=== PATIENT | female | born 1985 | race Caucasian/White ===

== ENCOUNTER 2016-07-24 15:11 | Emergency (ER) | payer MEDICAID | END 2016-07-24 21:36 | disposition home or self-care (01) | LOC: D.ER 15:11 | DX: S39.012A Strain of muscle, fascia and tendon of lower back, initial encounter (principal); W01.0XXA Fall on same level from slipping, tripping and stumbling without subsequent striking against object, initial encounter; Y93.89 Activity, other specified; Y92.019 Unspecified place in single-family (private) house as the place of occurrence of the external cause; R14.0 Abdominal distension (gaseous); F17.200 Nicotine dependence, unspecified, uncomplicated ==

== ENCOUNTER 2016-09-19 22:17 | Emergency (ER) | payer OTHER | END 2016-09-20 01:17 | disposition home or self-care (01) | LOC: D.ER 22:17 | DX: H10.31 Unspecified acute conjunctivitis, right eye (principal) ==

== ENCOUNTER 2016-11-07 08:44 | Emergency (ER) | payer OTHER ==
[2016-11-07 09:56] LABS: ALBUMIN 3.8 g/dL (3.4-5.0); ALKALINE PHOSPHATASE 71 U/L (46-116); ALT (SGPT) 26 U/L (10-68); AMYLASE - SERUM 18 U/L (25-115); BILIRUBIN - TOTAL 0.33 mg/dL (0.2-1.3); CALC OSMOLALITY 284 mosm/kg (275-300); CALCIUM 8.9 mg/dL (8.5-10.1); CARBON DIOXIDE 22.8 mmol/L (21.0-32.0); CHLORIDE - SERUM 106 mmol/L (98-107); CREATININE - SERUM 0.9 mg/dL (0.6-1.3); GLUCOSE 87 mg/dL (74-106); LIPASE 146 U/L (73-393); POTASSIUM - SERUM 3.6 mmol/L (3.5-5.1); PROTEIN - SERUM 6.8 g/dL (6.4-8.2); SODIUM 142 mmol/L (136-145); UREA NITROGEN 21 mg/dL (7-18); eGFR NON AFRICAN AMERICAN 77 mL/min (90-120)
[2016-11-07 10:01] LABS: HCG SERUM NEGATIVE (NEGATIVE)
[2016-11-07 10:19] LABS: APTT 30.5 SECONDS (22.8-39.4)
[2016-11-07 10:38] LABS: BASOPHILS 0.6 % (0-2); EOSINOPHILS 2.4 % (0-7); HEMATOCRIT 38.9 % (36.0-48.0); IMMATURE GRANULOCYTES 0.1 % (0-5); LYMPHOCYTES 30.4 % (15-50); MCHC 33.4 g/dL (31.0-37.0); MCV 86.8 fL (80.0-100.0); MEAN PLATELET VOLUME 11.2 fL (7.4-10.4); NEUTROPHILS 58.5 % (40-80); PLATELET COUNT 272 10x3/uL (130-400); RBC 4.48 10x6/uL (4.00-5.40); RDW 14.2 % (11.5-14.5)
[2016-11-07 10:52] LABS: INR 0.97 (0.85-1.17); PROTIME 12.8 SECONDS (11.6-15.0)
== END 2016-11-07 10:50 | disposition home or self-care (01) ==
LOC: D.ER 08:44
PROVIDERS: Emergency Medicine
DX: R10.9 Unspecified abdominal pain (principal); N94.6 Dysmenorrhea, unspecified

== ENCOUNTER 2017-04-21 10:44 | Emergency (ER) | payer MEDICAID | END 2017-04-21 12:47 | disposition home or self-care (01) | LOC: D.ER 10:44 | DX: M54.5 Low back pain (principal); W11.XXXA Fall on and from ladder, initial encounter; Y93.89 Activity, other specified; Y92.89 Other specified places as the place of occurrence of the external cause; F17.200 Nicotine dependence, unspecified, uncomplicated ==

== ENCOUNTER 2017-08-17 11:48 | Emergency (ER) | payer MEDICAID | END 2017-08-17 12:59 | disposition home or self-care (01) | LOC: D.ER 11:48 | DX: L25.9 Unspecified contact dermatitis, unspecified cause (principal); L50.9 Urticaria, unspecified; F17.200 Nicotine dependence, unspecified, uncomplicated ==

== ENCOUNTER 2018-01-25 13:45 | Emergency (ER) | payer SELFPAY ==
[~2018-01-25] VITALS: Ht 157.5 cm; Wt 75.0 kg
[2018-01-25 14:30] VITALS: Ht 157.5 cm; Wt 75.0 kg
[2018-01-25] MEDS ORDERED: HYDROCODONE-APA1 TAB PO (17:02)
[2018-01-25 17:34] VITALS: BP 135/87
== END 2018-01-25 17:34 | disposition home or self-care (01) ==
LOC: D.ER 13:45
DX: S39.012A Strain of muscle, fascia and tendon of lower back, initial encounter (principal); W18.30XA Fall on same level, unspecified, initial encounter; Y93.89 Activity, other specified; Y92.019 Unspecified place in single-family (private) house as the place of occurrence of the external cause; Q05.9 Spina bifida, unspecified; F17.200 Nicotine dependence, unspecified, uncomplicated

== ENCOUNTER 2018-03-05 09:44 | Emergency (ER) | payer SELFPAY ==
[~2018-03-05] VITALS: Ht 157.5 cm; Wt 79.5 kg
[~2018-03-05 09:44] MED LIST: HYDROCODONE-APA1 TAB PO
[2018-03-05 09:59] VITALS: Ht 157.5 cm; Wt 79.5 kg
[2018-03-05] MEDS ORDERED: PHENERGAN DM SYR5 ML PO (10:44)
[2018-03-05] MEDS ORDERED: VOLTAREN75 MG PO (10:44)
[2018-03-05] MEDS ORDERED: VIBRAMYCIN 100100 MG PO (10:44)
[2018-03-05 11:10] VITALS: BP 128/68
== END 2018-03-05 11:11 | disposition home or self-care (01) ==
LOC: D.ER 09:44
DX: L03.312 Cellulitis of back [any part except buttock and flank] (principal); J06.9 Acute upper respiratory infection, unspecified; F17.200 Nicotine dependence, unspecified, uncomplicated

== ENCOUNTER 2018-04-11 13:39 | Emergency (ER) | payer SELFPAY ==
[~2018-04-11] VITALS: Ht 157.5 cm; Wt 72.7 kg
[~2018-04-11 13:39] MED LIST changes: +PHENERGAN DM SYR5 ML PO; +VIBRAMYCIN 100100 MG PO; +VOLTAREN75 MG PO
[2018-04-11 13:59] VITALS: Ht 157.5 cm; Wt 72.7 kg
[2018-04-11] MEDS ORDERED: PENICILLIN V P500 MG PO (14:23)
[2018-04-11] MEDS ORDERED: NAPROSYN500 MG PO (14:23)
[2018-04-11 14:55] VITALS: BP 136/89
== END 2018-04-11 14:55 | disposition home or self-care (01) ==
LOC: D.ER 13:39
DX: K02.9 Dental caries, unspecified (principal); F17.200 Nicotine dependence, unspecified, uncomplicated

== ENCOUNTER 2018-04-21 22:45 | Emergency (ER) | payer SELFPAY ==
[~2018-04-21] VITALS: Ht 157.5 cm; Wt 81.8 kg
[~2018-04-21 22:45] MED LIST changes: +NAPROSYN500 MG PO; +PENICILLIN V P500 MG PO
[2018-04-21 22:55] VITALS: Ht 157.5 cm; Wt 81.8 kg
[2018-04-21] MEDS ORDERED: VOLTAREN75 MG PO (23:47)
[2018-04-21] MEDS ORDERED: CLEOCIN HCL300 MG PO (23:47)
[2018-04-22 00:16] VITALS: BP 128/89
== END 2018-04-22 00:16 | disposition home or self-care (01) ==
LOC: D.ER 22:45
DX: H10.32 Unspecified acute conjunctivitis, left eye (principal); F17.200 Nicotine dependence, unspecified, uncomplicated

== ENCOUNTER 2018-05-05 09:25 | Emergency (ER) | payer SELFPAY ==
[~2018-05-05] VITALS: Ht 157.5 cm; Wt 75.0 kg
[~2018-05-05 09:25] MED LIST changes: +CLEOCIN HCL300 MG PO
[2018-05-05 09:35] VITALS: Ht 157.5 cm; Wt 75.0 kg
[2018-05-05 10:33] LABS: BASOPHILS 0.4 % (0-2); EOSINOPHILS 1.2 % (0-7); HEMATOCRIT 36.2 % (36.0-48.0); HEMOGLOBIN 11.5 g/dL (12-16); IMMATURE GRANULOCYTES 0.3 % (0-5); LYMPHOCYTES 22.5 % (15-50); MCHC 31.8 g/dL (31.0-37.0); MCV 75.4 fL (80.0-100.0); MEAN PLATELET VOLUME 10.6 fL (7.4-10.4); MONOCYTES 6.1 % (2-11); NEUTROPHILS 69.5 % (40-80); PLATELET COUNT 299 10x3/uL (130-400); RDW 16.1 % (11.5-14.5); WBC 11.1 10x3/uL (4.8-10.8)
[2018-05-05 10:45] LABS: ALBUMIN 3.5 g/dL (3.4-5.0); ALKALINE PHOSPHATASE 88 U/L (46-116); ALT (SGPT) 20 U/L (10-68); BILIRUBIN - TOTAL 0.43 mg/dL (0.2-1.3); CALC OSMOLALITY 284 mosm/kg (275-300); CALCIUM 8.8 mg/dL (8.5-10.1); CARBON DIOXIDE 23.8 mmol/L (21.0-32.0); CHLORIDE - SERUM 104 mmol/L (98-107); CREATININE - SERUM 0.8 mg/dL (0.6-1.3); GLUCOSE 83 mg/dL (74-106); POTASSIUM - SERUM 3.4 mmol/L (3.5-5.1); PROTEIN - SERUM 7.4 g/dL (6.4-8.2); SODIUM 142 mmol/L (136-145); UREA NITROGEN 20 mg/dL (7-18); eGFR NON AFRICAN AMERICAN 87 mL/min (90-120)
[2018-05-05 11:54] LABS: HCG SERUM NEGATIVE (NEGATIVE)
[2018-05-05] MEDS ORDERED: CYCLOBENZAPRINE10 MG PO (12:09)
[2018-05-05] MEDS ORDERED: IBUPROFEN800 MG PO (12:09)
[2018-05-05] MEDS ORDERED: ACETAMINOPHEN500 M1 PO (12:09)
[2018-05-05 13:22] VITALS: BP 128/088
== END 2018-05-05 13:22 | disposition other institution (70) ==
LOC: D.ER 09:25
PROVIDERS: Family Medicine
DX: S05.01XA Injury of conjunctiva and corneal abrasion without foreign body, right eye, initial encounter (principal); X58.XXXA Exposure to other specified factors, initial encounter; Y93.89 Activity, other specified; Y92.019 Unspecified place in single-family (private) house as the place of occurrence of the external cause; H57.11 Ocular pain, right eye; M25.562 Pain in left knee; Q05.9 Spina bifida, unspecified; F17.200 Nicotine dependence, unspecified, uncomplicated

== ENCOUNTER 2018-12-29 18:49 | Emergency (ER) | payer OTHER ==
[2018-05-05 09:35] VITALS: BMI 30.2
[~2018-12-29 18:49] MED LIST changes: +ACETAMINOPHEN500 M1 PO; +CYCLOBENZAPRINE10 MG PO; +IBUPROFEN800 MG PO
== END 2018-12-29 19:23 | disposition home or self-care (01) ==
LOC: D.ER 18:49
DX: M54.9 Dorsalgia, unspecified (principal); R10.9 Unspecified abdominal pain

== ENCOUNTER 2019-07-16 20:28 | Emergency (ER) | payer OTHER ==
[~2019-07-16] VITALS: Ht 157.5 cm; Wt 68.2 kg
[2019-07-16 20:34] VITALS: Ht 157.5 cm; Wt 68.2 kg
[2019-07-16] MEDS ORDERED: EC-NAPROSYN500 MG PO (21:29)
[2019-07-16] MEDS ORDERED: PERMETHRIN60 GM TOPICAL (21:37)
[2019-07-16 22:03] VITALS: BP 122/87
== END 2019-07-16 22:15 | disposition home or self-care (01) ==
LOC: D.ER 20:28
DX: S93.401A Sprain of unspecified ligament of right ankle, initial encounter (principal); Y09 Assault by unspecified means; M54.9 Dorsalgia, unspecified

== ENCOUNTER 2019-08-23 08:38 | Emergency (ER) | payer OTHER ==
[~2019-08-23] VITALS: Ht 157.5 cm; Wt 63.6 kg
[~2019-08-23 08:38] MED LIST changes: +EC-NAPROSYN500 MG PO; +PERMETHRIN60 GM TOPICAL
[2019-08-23 08:44] VITALS: Ht 157.5 cm; Wt 63.6 kg
[2019-08-23] MEDS ORDERED: SMZ-TMP DS 800-1 TAB PO (08:58)
[2019-08-23 09:16] VITALS: BP 149/86
== END 2019-08-23 09:16 | disposition home or self-care (01) ==
LOC: D.ER 08:38
DX: L01.00 Impetigo, unspecified (principal)

== ENCOUNTER 2020-09-02 14:07 | Emergency (ER) | payer OTHER ==
[~2020-09-02] VITALS: Ht 157.5 cm; Wt 65.9 kg
[~2020-09-02 14:07] MED LIST changes: +SMZ-TMP DS 800-1 TAB PO
[2020-09-02 14:18] VITALS: Ht 157.5 cm; Wt 65.9 kg
[2020-09-02] MEDS ORDERED: PERMETHRIN60 GM TOPICAL (14:48)
[2020-09-02 14:54] VITALS: BP 132/89
== END 2020-09-02 14:56 | disposition home or self-care (01) ==
LOC: D.ER 14:07
DX: B35.0 Tinea barbae and tinea capitis (principal); B86 Scabies